=== PATIENT | female | born 1970 | race Asian ===

== ENCOUNTER 2020-11-19 10:53 | Emergency (ER) | payer MEDICAID ==
[~2020-11-19] VITALS: Ht 162.6 cm; Wt 70.3 kg
[2020-11-19 10:55] VITALS: BP_SYST 186
--- NOTE | 2020-11-19 10:55 | NUR ---
Placed in room 5 . Placed on media monitor, blood pressure machine and pulse oximeter. To gown for exam. Side rails up. Report given to KENZIE MEJIA.
--- NOTE | 2020-11-19 11:01 | NUR ---
Pt came into ER with compalint of left sided sharp chest pain 10/10 radiating to the back starting approximatley 20 minutes ago. Pt is AAOX4 speaking full sentences. Breathing is even and unlabored. Vital signs holding BP 159/89. Pt resting in gurney attached to monitor no distress noted at this time. Pt denies SOB.
--- NOTE | 2020-11-19 11:05 | NUR ---
ER at bedside examining patient.
--- NOTE | 2020-11-19 11:19 | NUR ---
Lab at bedside.
--- NOTE | 2020-11-19 11:27 | NUR ---
Pt states she has no pain. Pt is resting in gurney vital signs holding. Breathing is even and unlabored.
[2020-11-19 11:33] LABS: BASOPHILS % (AUTO) 0.8 % (0.0-2.0); EOSINOPHILS # (AUTO) 0.1 K/uL (0.0-0.4); HEMATOCRIT 39.1 % (36-48); HEMOGLOBIN 13.5 g/dL (12.0-16.0); LYMPHOCYTES # (AUTO) 2.4 K/uL (1.0-5.5); LYMPHOCYTES % (AUTO) 40.3 % (20.5-51.5); MEAN CORPUSCULAR HEMOGLOBIN 31 pg (27-31); MEAN CORPUSCULAR HGB CONC 35 % (32-36); MEAN CORPUSCULAR VOLUME 90 fL (79.0-98.0); MONOCYTES # (AUTO) 0.5 K/uL (0.0-1.0); MONOCYTES % (AUTO) 7.7 % (1.7-9.3); NEUTROPHILS % (AUTO) 49.2 % (40.0-70.0); PLATELET COUNT (AUTO) 214 K/uL (130-430); RED BLOOD CELL COUNT(AUTO) 4.35 MIL/uL (4.2-6.2)
--- NOTE | 2020-11-19 11:42 | NUR ---
X-ray at bedside.
[2020-11-19 11:44] LABS: CALCIUM 8.8 mg/dL (8.4-11.0); CREATININE 0.7 mg/dL (0.55-1.30); POTASSIUM 3.8 mmol/L (3.5-5.1)
[2020-11-19 11:50] LABS: ALBUMIN 3.8 g/dL (3.4-4.8); TOTAL BILIRUBIN 0.4 mg/dL (0.0-1.0)
--- NOTE | 2020-11-19 12:28 | NUR ---
Patient given written and verbal discharge instructions and verbalizes understanding. ER MD discussed with patient the results and treatment provided. Patient in stable condition. ID arm band removed. Patient educated on pain management and to follow up with PMD. Pain Scale 0/10. Opportunity for questions provided and answered. Medication side effect fact sheet provided.
[2020-11-19 12:30] VITALS: BP_SYST 139
== END 2020-11-19 12:30 | disposition home or self-care (01) ==
LOC: SED 10:53
DX: R00.2 Palpitations (principal); R07.9 Chest pain, unspecified
CPT/HCPCS: 36415; 71045; 80053; 83880; 84484; 85025; 85379; 93005; 99285